=== PATIENT | male | born 1990 ===

== ENCOUNTER 2017-05-28 10:47 | Emergency (ER) | payer SELFPAY ==
[2017-05-28 10:59] VITALS: RESP 18; TEMP 98.8; BMI 30.8
[2017-05-28] MEDS ORDERED: DiphenhydrAMINE 50 mg/ml Inj IVP STA (11:13)
--- NOTE | 2017-05-28 11:16 | ED PDOC ---
Arrival/HPI - General Chief Complaint: Headache Time Seen by Provider: 05/28/17 11:01 Historian: Patient - History of Present Illness Narrative History of Present Illness (Text): 05/28/17 11:13 26 year old male, who denies any past medical history, presents to the emergency department complaining of a left sided headache with no associated symptoms that began yesterday. Headache started as gradual and constant. Patient rates the pain as a 10/10 and describes the pain as throbbing. He states he's had headaches before but this headache has been going on for 2 days so he came to the ED. He reports taking Advil this morning with no relief. Patient denies any fever, chills, vision changes, hearing changes, speech changes, cough, vomiting, nausea, dizziness, back pain, neck pain, trauma, or any other complaints. PMD: None Time/Duration: Other (yesterday ) Symptom Onset: Gradual Symptom Course: Unchanged Quality: Throbbing Severity Level: 10 Activities at Onset: Light Context: Home Past Medical History - Provider Review Nursing Documentation Reviewed: Yes - Infectious Disease Hx of Infectious Diseases: None - Psychiatric Hx Psychophysiologic Disorder: No Hx Substance Use: No - Anesthesia Hx Anesthesia: No Hx Anesthesia Reactions: No Hx Malignant Hyperthermia: No Family/Social History - Physician Review Nursing Documentation Reviewed: Yes Family/Social History: No Known Family HX Smoking Status: Never Smoked Hx Alcohol Use: No Hx Substance Use: No Allergies/Home Meds Allergies/Adverse Reactions: Allergies No Known Allergies Allergy (Verified 06/09/16 17:05) Review of Systems - Physician Review All systems were reviewed & negative as marked: Yes - Review of Systems Constitutional: absent: Fevers, Other (Chills) Eyes: absent: Vision Changes, Photophobia ENT: absent: Hearing Changes Respiratory: absent: Cough Gastrointestinal: absent: Nausea, Vomiting Musculoskeletal: absent: Back Pain, Neck Pain Neurological: Headache. absent: Dizziness, Speech Changes Physical Exam Vital Signs Reviewed: Yes Vital Signs Temp Pulse Resp BP Pulse Ox 05/28/17 11:45 79 18 127/85 98 05/28/17 10:53 98.8 F 72 18 138/88 99 Temperature: Afebrile Blood Pressure: Normal Pulse: Regular Respiratory Rate: Normal Appearance: Positive for: Well-Appearing, Non-Toxic, Comfortable Pain Distress: Mild Mental Status: Positive for: Alert and Oriented X 3 - Systems Exam Head: Present: Atraumatic, Normocephalic Pupils: Present: PERRL Extroacular Muscles: Present: EOMI Conjunctiva: Present: Normal Mouth: Present: Moist Mucous Membranes Neck: Present: Normal Range of Motion Respiratory/Chest: Present: Clear to Auscultation, Good Air Exchange. No: Respiratory Distress, Accessory Muscle Use Cardiovascular: Present: Regular Rate and Rhythm, Normal S1, S2. No: Murmurs Abdomen: Present: Normal Bowel Sounds. No: Tenderness, Distention, Peritoneal Signs Back: Present: Normal Inspection Upper Extremity: Present: Normal Inspection, Normal ROM. No: Cyanosis, Edema Lower Extremity: Present: Normal Inspection, Normal ROM. No: Edema Neurological: Present: GCS=15, CN II-XII Intact, Speech Normal, Motor Func Grossly Intact, Normal Sensory Function, Normal Cerebellar Funct, Norm Deep Tendon Reflexes, Gait Normal, Memory Normal Skin: Present: Warm, Dry, Normal Color. No: Rashes Psychiatric: Present: Alert, Oriented x 3, Normal Insight, Normal Concentration Medical Decision Making ED Course and Treatment: 05/28/17 11:13 Impression: 26 year old male presents complaining of a left sides throbbing headache that began yesterday. Differential Diagnosis included but are not limited to: Migraines VS Cluster Headache VS Tension Headache VS Subarachnoid Hemorrhage Symptoms most consistent with cluster or tension headache Plan: -- CT head -- Labs -- Benadryl -- Reglan -- Tylen -- O2 via Nasal Cannula -- Reassess and disposition Progress Notes: PROCEDURE: CT HEAD WITHOUT CONTRAST Dictator: Jorge Conway MD Report Date : 05/28/2017 11:53:18 IMPRESSION: No acute findings 05/28/17 12:[address] normal. Labs normal. Results reviewed with the patient. Upon reevaluation, he feels much better and no longer has a headache. I discussed with that he needs a Lumbar Puncture to rule out a SAH. He does not want the procedure done. He states that he feels better and does not want the procedure. I explained to him the importance of the procedure and that we won't be able to make the diagnosis without it. I explained the risks of not having the procedure including and disability. He states he understands and says that if his symptoms return that he will return to the emergency room. I offered him admission for observation but he wants to go home. - Lab Interpretations Lab Results: 05/28/17 11:23 05/28/17 11:23 Lab Results 05/28/17 11:23: Sodium 140, Potassium 4.5, Chloride 104, Carbon Dioxide 28, Anion Gap 13, BUN 20, Creatinine 0.9, Est GFR ( Amer) > 60, Est GFR (Non- Af Amer) > 60, Random Glucose 103, Calcium 9.2 05/28/17 11:23: PT 11.7, INR 1.06, APTT 34.8 05/28/17 11:23: WBC 6.7, RBC 5.38, Hgb 16.7, Hct 48.1, MCV 89.4, MCH 31.0, MCHC 34.7, RDW 12.5, Plt Count 220, MPV 10.3, Gran % 56.8, Lymph % (Auto) 33.0, Knox % (Auto) 8.6 H, Eos % (Auto) 1.5, Baso % (Auto) 0.1, Gran # 3.82, Lymph # 2.2, Knox # 0.6, Eos # 0.1, Baso # 0.01 I have reviewed the lab results: Yes - RAD Interpretation Radiology Orders: 05/28/17 11:13 HEAD W/O CONTRAST [CT] Stat - Medication Orders Current Medication Orders: Discontinued Medications Acetaminophen (Tylenol 325mg Tab) 975 mg PO STAT STA Stop: 05/28/17 11:13 Last Admin: 05/28/17 11:37 Dose: 975 mg MAR Pain/Vitals Document 05/28/17 11:37 GMD (Rec: 05/28/17 11:37 [facility] [id number] Pain Reassessment Is This A Pain ReAssessment? No Sleep Is patient sleeping during reassessment? No Presence of Pain Presence of Pain Yes Diphenhydramine HCl (Benadryl) 50 mg IVP STAT STA Stop: 05/28/17 11:14 Last Admin: 05/28/17 11:37 Dose: 50 mg IVP Administration Document 05/28/17 11:37 GMD (Rec: 05/28/17 11:37 [facility] [id number][place] Charges for Administration # of IVP Administrations 1 Metoclopramide HCl (Reglan) 10 mg IVP STAT STA Stop: 05/28/17 11:13 Last Admin: 05/28/17 11:37 Dose: 10 mg IVP Administration Document 05/28/17 11:37 GMD (Rec: 05/28/17 11:37 [facility] [id number]) Charges for Administration # of IVP Administrations 1 - Scribe Statement The provider has reviewed the documentation as recorded by the Joseibe Kelly Simmons All medical record entries made by the Scribe were at my direction and personally dictated by me. I have reviewed the chart and agree that the record accurately reflects my personal performance of the history, physical exam, medical decision making, and the department course for this patient. I have also personally directed, reviewed, and agree with the discharge instructions and disposition. Disposition/Present on Arrival - Present on Arrival Any Indicators Present on Arrival: No History of DVT/PE: No History of Uncontrolled Diabetes: No Urinary Catheter: No History of Decub. Ulcer: No History Surgical Site Infection Following: None - Disposition Have Diagnosis and Disposition been Completed?: Yes Diagnosis: Headache Disposition: HOME/ ROUTINE Disposition Time: 12:57 Patient Plan: Discharge Patient Problems: Current Active Problems Problem Status Onset Headache Acute Condition: IMPROVED Discharge Instructions (ExitCare): Acute Headache (ED) Additional Instructions: Brodie, thank you for letting us take care of you today. Your provider was Dr. Mosqueda. You were treated for Headache. The emergency medical care you received today was directed at your acute symptoms. If you were prescribed any medication, please fill it and take as directed. It may take several days for your symptoms to resolve. Return to the Emergency Department if your symptoms worsen, do not improve, or if you have any other problems. Please contact your doctor or call one of the physicians/clinics you have been referred to that are listed on the Patient Visit Information form that is included in your discharge packet. Bring any paperwork you were given at discharge with you along with any medications you are taking to your follow up visit. Our treatment cannot replace ongoing medical care by a primary care provider (PCP) outside of the emergency department. Thank you for allowing the [facility] team to be part of your care today. If you had an X-Ray or CT scan: A Radiologist will review the ED reading if any change in treatment is needed we will contact you. If you had a blood, urine, or wound culture: It will take several days for the results, if any change in treatment is needed we will contact you. If you had an STI test: It will take 48 hours for the results. Please call after 1 week if you have not heard back. Prescriptions: Acetaminophen [Tylenol 325mg tab] 650 mg PO Q4 #60 tab Referrals: [facility] [place] [Outside] - Follow up with primary Forms: [employer] (Swedish)
[2017-05-28 11:27] LABS: BASO # 0.01 K/mm3 (0.0-2.0); BASO % 0.1 % (0.0-3.0); EOS # 0.1 (0.0-0.7); EOS % 1.5 % (1.5-5.0); GRAN # 3.82 (1.4-6.5); GRAN % 56.8 % (50.0-68.0); HEMATOCRIT 48.1 % (42.0-52.0); LYMPH # 2.2 (1.2-3.4); MEAN CELL VOLUME 89.4 fl (80.0-105.0); MEAN CORPUSCULAR HGB CONC 34.7 g/dl (31.0-37.0); MEAN PLATELET VOLUME 10.3 fl (7.0-11.0); MONO # 0.6 (0.1-0.6); MONO % 8.6 % (1.0-6.0); RED CELL DISTRIBUTION WIDTH 12.5 % (11.5-14.5); WHITE BLOOD COUNT 6.7 10^3/ul (4.5-11.0)
[2017-05-28 11:45] LABS: INR 1.06 (0.93-1.08); PARTIAL THROMBOPLASTIN TIME 34.8 Seconds (25.1-36.5)
[2017-05-28 11:46] VITALS: BP 127/85; PULSE 79; O2SAT 98
--- NOTE | 2017-05-28 11:54 | CT ---
PROCEDURE: CT HEAD WITHOUT CONTRAST. HISTORY: headache r/o sah COMPARISON: None available. TECHNIQUE: Axial computed tomography images were obtained through the head/brain without intravenous contrast. Radiation dose: Total exam DLP = 871 mGy-cm. This CT exam was performed using one or more of the following dose reduction techniques: Automated exposure control, adjustment of the mA and/or kV according to patient size, and/or use of iterative reconstruction technique. FINDINGS: HEMORRHAGE: No intracranial hemorrhage. BRAIN: No mass effect or edema. No atrophy or chronic microvascular ischemic changes. VENTRICLES: Unremarkable. No hydrocephalus. CALVARIUM: Unremarkable. PARANASAL SINUSES: Unremarkable as visualized. No significant inflammatory changes. MASTOID AIR CELLS: Unremarkable as visualized. No inflammatory changes. OTHER FINDINGS: None. IMPRESSION: No acute findings
[2017-05-28 11:57] LABS: BLOOD UREA NITROGEN 20 mg/dL (7-21); CALCIUM 9.2 mg/dL (8.4-10.5); CARBON DIOXIDE 28 mmol/L (21-33); CHLORIDE 104 mmol/L (98-107); GFR AFRICAN-AMERICAN > 60; GLUCOSE,RANDOM 103 mg/dL (70-110); POTASSIUM 4.5 mmol/L (3.6-5.0); SODIUM 140 mmol/L (132-148)
== END 2017-05-28 12:52 | disposition home or self-care (01) ==
LOC: ED 10:47
DX: R51 Headache (principal)
CPT/HCPCS: 70450; 80048; 85025; 85610; 85730; 96374; 96375; 99285; J1200; J2765